=== PATIENT | male | born 1945 | race Caucasian/White ===

== ENCOUNTER → 2016-09-07 | Day surgery (SDC) | payer OTHER ==
[~2016-09-07] VITALS: Ht 170.2 cm; Wt 72.0 kg
[2016-09-07 10:00] VITALS: BP 161/82; PULSE 74; TEMP 36.5; O2SAT 96; Ht 170.2 cm; Wt 72.0 kg
--- NOTE | 2016-09-07 11:22 | TILT TABLE TEST RESULTS ---
INDICATIONS FOR TILT TESTING: Syncope and orthostatic symptoms. HISTORY: This is a 70-year-old male who describes multiple episodes of syncope in the past and has known nonobstructive coronary artery disease. He also has orthostatic-type symptoms which result in presyncope, not syncope. He possibly has Parkinson's disease and he is, therefore, brought to laboratory for tilt testing to look for vagal episodes or orthostasis. After obtaining informed consent for the procedure, he was brought to laboratory on the morning of 09/07/2016, being n.p.o. after midnight. He was identified in laboratory, placed on the tilt test where he remained stable for 15 minutes. During the procedure, continuous electrocardiographic monitoring and pulse oximetry were performed, noninvasive blood pressure monitoring was also performed. The head of the bed was then tilted upright where he remained for 35 minutes whereupon the head of the bed was placed supine. He had no symptoms during the test. The baseline blood pressure after 15 minutes of equilibration was 157/76, heart rate was 73, and pulse oximetry was 96%. Immediately on obtaining an upright tilt, his blood pressure was 149/73, heart rate 77, and pulse oximetry 96%. The blood pressure gradually dropped during the tilt to a low of 124/67 at 25 minutes, at that time his heart rate was 89 beats per minute. After that, his blood pressure stabilized at around 131-133 systolic, heart rate 92-93 beats per minute. He was placed supine and his immediate blood pressure was 156/82 with a heart rate of 84. IMPRESSION: 1. Consistent with orthostatic hypotension, the blood pressure did drop by more than 20 mmHg, although when placed supine at the end of the test, increased by just 19 mmHg, but this is consistent with orthostatic hypotension. Additionally, his heart rate aaron from 73 beats per minute initially to 92-93 beats per minute, consistent with a 26-xeoo-tey-minute rise in heart rate, also consistent with orthostasis. 2. No evidence of vasovagal syncope. 3. No symptoms were elicited on this test. JOSE MIGUEL
== END | disposition home or self-care (01) ==
LOC: C.CATH 08:44
PROVIDERS: ATTEND Internal Medicine Cardiovascular Disease
DX: R55 Syncope and collapse (principal); I95.1 Orthostatic hypotension; E78.5 Hyperlipidemia, unspecified; I25.10 Atherosclerotic heart disease of native coronary artery without angina pectoris; M81.0 Age-related osteoporosis without current pathological fracture; M19.90 Unspecified osteoarthritis, unspecified site; K21.9 Gastro-esophageal reflux disease without esophagitis; E03.9 Hypothyroidism, unspecified; G47.33 Obstructive sleep apnea (adult) (pediatric)

== ENCOUNTER → 2016-10-23 | Outpatient (CLI) | payer OTHER ==
--- NOTE | 2016-10-23 09:55 | DIAGNOSTIC IMAGING REPORT ---
CHEST CT WITHOUT CONTRAST CT DOSE: 248.95 mGy.cm HISTORY: Pulmonary nodules adenopathy TECHNIQUE: Multiaxial CT images of the chest were performed without contrast. COMPARISON: 10/05/2014 FINDINGS: Lungs remain generally clear. Several micronodules are present all of which appear stable. There has been a subtle increase involving of a right upper lung nodule as well as a pleural-based nodule anterior aspect right upper lung. Both nodules have increased from 3 to 4 mm. This is of doubtful significance in a 2 year time span. No new or additional nodules are present. No significant hilar or mediastinal adenopathy. IMPRESSION: Slight increase in volume of 2 micronodules right upper lung. This is of doubtful significance given the two-year timeframe from the prior exam. One additional 1-2 year follow-up is recommended Electronically signed by: Femi Cardona M.D. 10/23/2016 9:53 AM Dictated Date/Time: 10/23/2016 9:44 AM
== END | disposition home or self-care (01) ==
LOC: C.CTS 09:25
PROVIDERS: ATTEND Internal Medicine Pulmonary Disease
DX: R91.8 Other nonspecific abnormal finding of lung field (principal)

== ENCOUNTER → 2017-02-12 | Outpatient (CLI) | payer OTHER ==
[2017-02-12 12:27] LABS: BASO % 0.3 %; BASO ABS # 0.01 K/uL (0-0.2); COMPLETE YES; IG% 0.3 %; LYMPH % 28.3 %; LYMPH ABS # 1.13 K/uL (1.2-3.4); MEAN CELL VOLUME 90.5 fL (80-100); MEAN CORPUSCULAR HEMOGLOBIN 30.5 pg (25-34); MEAN CORPUSCULAR HGB CONC 33.6 g/dl (32-36); MEAN PLATELET VOLUME 11.5 fL (7.4-10.4); MONO % 8.8 %; NEUT % 61.3 %; PLATELET COUNT 118 K/uL (130-400); RED BLOOD COUNT 4.86 M/uL (4.7-6.1); WHITE BLOOD COUNT 3.99 K/uL (4.8-10.8)
[2017-02-12 13:05] LABS: ALT/SGPT 36 U/L (12-78); BLOOD UREA NITROGEN 22 mg/dl (7-18); BUN/CREATININE RATIO 18.1 (10-20); CALCIUM 9.4 mg/dl (8.5-10.1); CARBON DIOXIDE 29 mmol/L (21-32); CHLORIDE 106 mmol/L (98-107); GLUCOSE 90 mg/dl (70-99); SODIUM 140 mmol/L (136-145)
[2017-02-12 13:18] LABS: ALB/GLOB RATIO 1.3 (0.9-2); ALKALINE PHOSPHATASE 54 U/L (45-117); AST/SGOT 20 U/L (15-37); CHOLESTEROL 158 mg/dl (0-200); CHOLESTEROL/HDL RATIO 2.3; HDL CHOLESTEROL 68 mg/dl; LDL CHOLESTEROL CALCULATED 75 mg/dl; TRIGLYCERIDES 76 mg/dl (0-150); VERY LOW DENSITY LIPOPROT CALC 15 mg/dl
[2017-02-13 15:29] LABS: THYROGLOBULIN <0.1 NG/ML (2.8-40.9)
== END | disposition home or self-care (01) ==
LOC: C.LAB 11:39
PROVIDERS: ATTEND Psychiatry & Neurology Psychiatry
DX: Z79.899 Other long term (current) drug therapy (principal)

== ENCOUNTER → 2017-03-23 | Outpatient (CLI) | payer OTHER ==
[2017-03-23 15:42] LABS: COMPLETE YES; EOS % 1.5 %; HEMATOCRIT 41.6 % (42-52); IG% 0.2 %; LYMPH % 26.1 %; LYMPH ABS # 1.24 K/uL (1.2-3.4); MEAN CELL VOLUME 91.6 fL (80-100); MEAN CORPUSCULAR HEMOGLOBIN 31.1 pg (25-34); MEAN CORPUSCULAR HGB CONC 33.9 g/dl (32-36); MEAN PLATELET VOLUME 11.7 fL (7.4-10.4); MONO % 6.3 %; NEUT % 65.9 %; PLATELET COUNT 121 K/uL (130-400); RED BLOOD COUNT 4.54 M/uL (4.7-6.1); WHITE BLOOD COUNT 4.76 K/uL (4.8-10.8)
== END | disposition home or self-care (01) ==
LOC: C.LAB 14:44
PROVIDERS: ATTEND Internal Medicine Geriatric Medicine
DX: D69.6 Thrombocytopenia, unspecified (principal); E03.9 Hypothyroidism, unspecified

== ENCOUNTER → 2017-06-01 | Outpatient (CLI) | payer OTHER ==
[2017-06-01 15:33] LABS: BLOOD UREA NITROGEN 24 mg/dl (7-18); CREATININE 1.13 mg/dl (0.60-1.40)
== END | disposition home or self-care (01) ==
LOC: C.LAB 14:16
PROVIDERS: ATTEND Internal Medicine Geriatric Medicine
DX: Z01.818 Encounter for other preprocedural examination (principal); Z01.812 Encounter for preprocedural laboratory examination

== ENCOUNTER → 2017-11-14 | Outpatient (CLI) | payer OTHER ==
[2017-11-14 18:17] LABS: BASO % 0.1 %; BASO ABS # 0.01 K/uL (0-0.2); EOS % 0.1 %; EOS ABS # 0.01 K/uL (0-0.5); HEMATOCRIT 40.5 % (42-52); HEMOGLOBIN 13.7 g/dL (14.0-18.0); IG# 0.03 K/uL (0.00-0.02); LYMPH % 13.8 %; LYMPH ABS # 1.11 K/uL (1.2-3.4); MEAN CELL VOLUME 91.8 fL (80-100); MEAN CORPUSCULAR HEMOGLOBIN 31.1 pg (25-34); MEAN CORPUSCULAR HGB CONC 33.8 g/dl (32-36); MEAN PLATELET VOLUME 11.6 fL (7.4-10.4); MONO % 8.2 %; MONO ABS # 0.66 K/uL (0.11-0.59); NEUT % 77.4 %; NEUT ABS # 6.23 K/uL (1.4-6.5); PLATELET COUNT 125 K/uL (130-400); RED CELL DISTRIBUTION WIDTH CV 13.8 % (11.5-14.5); RED CELL DISTRIBUTION WIDTH SD 46.8 fL (36.4-46.3); WHITE BLOOD COUNT 8.05 K/uL (4.8-10.8)
[2017-11-14 18:39] LABS: BLOOD UREA NITROGEN 18 mg/dl (7-18); CALCIUM 9.7 mg/dl (8.5-10.1); CARBON DIOXIDE 29 mmol/L (21-32); CREATININE 1.74 mg/dl (0.60-1.40); GLUCOSE 99 mg/dl (70-99); POTASSIUM 3.6 mmol/L (3.5-5.1); SODIUM 139 mmol/L (136-145)
== END | disposition home or self-care (01) ==
LOC: C.LAB 17:25
PROVIDERS: ATTEND Internal Medicine Geriatric Medicine
DX: R31.9 Hematuria, unspecified (principal)

== ENCOUNTER → 2017-11-16 | Outpatient (CLI) | payer OTHER ==
--- NOTE | 2017-11-16 13:21 | DIAGNOSTIC IMAGING REPORT ---
ABDOMEN AND PELVIS CT WITHOUT CONTRAST CT DOSE: 509.37 mGy.cm HISTORY: R31.9 [id number] Elevated serum creatinine TECHNIQUE: Multiaxial CT images of the abdomen and pelvis were performed without contrast. A dose lowering technique was utilized adhering to the principles of ALARA. COMPARISON STUDY: Abdomen and pelvis CT 10/02/2008. FINDINGS: The lung bases are essentially clear. No pneumoperitoneum. No pneumatosis. No suspicious lytic or blastic osseous lesions. Tiny fat-containing umbilical hernia. The unenhanced liver, gallbladder, spleen, pancreas, and adrenal glands are unremarkable. Subtle focal area of increased density within the lower pole the left kidney which may represent a small stone. This measures 4 mm. No right renal calculi. No ureteral calculi. No hydronephrosis. Mild bladder wall thickening. This could be due to underdistention. No pelvic free fluid. Suboptimal evaluation for bowel pathology due to the lack of intravenous and oral contrast. However, there is no definite bowel wall thickening or obstruction. Colonic diverticulosis. Normal appendix. No retroperitoneal lymphadenopathy. There is a left circumaortic renal vein. IMPRESSION: 1. Mild bladder wall thickening. This could be due to underdistention. Recommend correlation with urinalysis to exclude a cystitis. 2. Possible 4 mm stone within the lower pole of the left kidney. No ureteral stones. No hydronephrosis. 3. No definite bowel wall thickening or obstruction. 4. Colonic diverticulosis. 5. Normal appendix. Electronically signed by: Luis A Orosco M.D. 11/16/2017 1:20 PM Dictated Date/Time: 11/16/2017 1:06 PM
== END | disposition home or self-care (01) ==
LOC: C.CTS 12:25
PROVIDERS: ATTEND Internal Medicine Geriatric Medicine
DX: R31.9 Hematuria, unspecified (principal); R79.89 Other specified abnormal findings of blood chemistry

== ENCOUNTER → 2017-11-20 | Outpatient (CLI) | payer OTHER ==
[2017-11-20 15:13] LABS: BLOOD UREA NITROGEN 15 mg/dl (7-18); CALCIUM 9.5 mg/dl (8.5-10.1); CARBON DIOXIDE 30 mmol/L (21-32); CREATININE 1.44 mg/dl (0.60-1.40); GLUCOSE 137 mg/dl (70-99); POTASSIUM 3.7 mmol/L (3.5-5.1); SODIUM 140 mmol/L (136-145)
== END | disposition home or self-care (01) ==
LOC: C.LAB 14:21
PROVIDERS: ATTEND Internal Medicine Geriatric Medicine
DX: R79.89 Other specified abnormal findings of blood chemistry (principal); G20 Parkinson's disease; R31.9 Hematuria, unspecified

== ENCOUNTER → 2017-11-21 | Outpatient (CLI) | payer OTHER | END | disposition home or self-care (01) | LOC: C.LABSPEC 11:18 | PROVIDERS: ATTEND Urology | DX: R30.0 Dysuria (principal) ==

== ENCOUNTER → 2017-11-30 | Outpatient (CLI) | payer OTHER | END | disposition home or self-care (01) | LOC: C.PATHSPEC 15:28 | PROVIDERS: ATTEND Urology | DX: D49.59 Neoplasm of unspecified behavior of other genitourinary organ (principal) ==

== ENCOUNTER → 2017-12-03 | Outpatient (CLI) | payer OTHER ==
--- NOTE | 2017-12-03 17:38 | DIAGNOSTIC IMAGING REPORT ---
(CHEST) THORAX WITHOUT CT DOSE: 287.37 mGy.cm HISTORY: Follow-up pulmonary nodules. TECHNIQUE: Multiaxial CT images of the chest were performed without contrast. A dose lowering technique was utilized adhering to the principles of ALARA. COMPARISON: Chest CT 10/23/2016. Chest CT 10/05/2014. FINDINGS: The visualized liver, adrenal glands, and spleen are unremarkable. Trace pericardial fluid. No pleural effusions. Bilateral gynecomastia. The heart is normal in size. No mediastinal or hilar lymphadenopathy. Normal caliber thoracic aorta. The thyroid gland is not identified and may be surgically absent. No fractures within the visualized osseous structures. No pneumothorax. The central airways are patent. There are few scattered subcentimeter pulmonary nodules, unchanged. Dominant nodule within the left lower lobe on image 250 measures 4 mm. Stable 3.6 mm nodule within the right upper lobe on image 108. No new pulmonary nodules identified. The lungs are otherwise clear. IMPRESSION: 1. Stable subcentimeter pulmonary nodules measuring up to 4 mm. These demonstrate greater than 2 year stability and are therefore considered to be benign. 2. No new nodules. No focal lung consolidations. Electronically signed by: Luis A Orosco M.D. 12/03/2017 5:37 PM Dictated Date/Time: 12/03/2017 5:23 PM
== END | disposition home or self-care (01) ==
LOC: C.CTS 16:37
PROVIDERS: ATTEND Internal Medicine Pulmonary Disease
DX: R91.8 Other nonspecific abnormal finding of lung field (principal)